=== PATIENT | female | born 1995 | race Caucasian/White ===

== ENCOUNTER 2018-05-08 21:49 | Emergency (ER) | payer SELFPAY ==
[2018-05-08] MEDS ORDERED: IPRATROPIUM/ALBUTEROL 3 ML VIAL NEB ONE ×2 (21:50→22:01)
--- NOTE | 2018-05-08 22:13 | ED.PDOC ---
History of Present Illness - General Chief Complaint: Asthma Stated Complaint: wheezing Time Seen by Provider: 05/08/18 22:10 Source: patient Exam Limitations: no limitations - History of Present Illness Comments: Alize Rodgers,22 y/o female came to ER with non productive cough,wheezing which had been gradually worsening the last 2 days.Had been diagnosed with asthma 2 1/2 years ago was prescribed Albuterol MDI,LABA and nebulizer by [facility] but never had any follow up for the last one year. Timing/Duration: yesterday, getting worse Cough Quality/Degree: dry cough Possible Cause: occasional episodes, allergen exposure Improving Factors: nothing Worsening Factors: nothing Associated Symptoms: wheezing Respiratory Risk Factors: exposure to allergen Allergies/Adverse Reactions: Allergies Azithromycin [From Zithromax Z-Tulio] Allergy (Verified 02/14/15 20:40) Rash face swells turns red and difficulty breathing Prednisone Adverse Reaction (Verified 05/08/18 21:57) Home Medications: Ambulatory Orders Albuterol Inhaler [Ventolin Hfa Inhaler] 108 mcg IN Q4HR PRN #1 inh 05/09/18 Albuterol Sulfate Nebs [Proventil Nebs] 2.5 mg INH Q6HRS PRN #60 vial 05/09/18 Cefuroxime Axetil [Ceftin] 500 mg PO Q12H 7 Days #14 tablet 05/09/18 Dexamethasone Tab [Decadron Tab] 4 mg PO DAILY 7 Days #7 tab 05/09/18 Review of Systems - Review of Systems Constitutional: States: no symptoms reported EENTM: States: no symptoms reported Respiratory: States: see HPI Cardiology: States: no symptoms reported Gastrointestinal/Abdominal: States: no symptoms reported Genitourinary: States: no symptoms reported All other Systems: Reviewed and Negative, No Change from Baseline Past Medical History (General) - Patient Medical History Hx Seizures: No Hx Stroke: No Hx Asthma: Yes Hx of COPD: No Hx Cardiac Disorders: No Hx Congestive Heart Failure: No Hx Pacemaker: No Hx Hypertension: No Hx Thyroid Disease: Yes Hx Diabetes: No Hx Renal Disease: No Hx MRSA: No Surgical History: no surgical history - Vaccination History Hx Tetanus, Diphtheria Vaccination: No Hx Influenza Vaccination: No Hx Pneumococcal Vaccination: No Immunizations Up to Date: No - Social History Hx Tobacco Use: Yes Hx Chewing Tobacco Use: No Hx Alcohol Use: No Hx Substance Use: No Hx Substance Use Treatment: No Hx Depression: No Hx Physical Abuse: No Hx Emotional Abuse: No - Female History Patient is a Female of Child Bearing Age (10 -59 yrs old): Yes Hx Last Menstrual Period: 03/13/18 Patient : No - Triage Comment ED Triage Comment: Has history of asthma, but does not have any medication left to treat it. Wheezing for past two days Family Medical History - Family History Mother Age (years): 32 Living Status: Still Living Hx Family Asthma: Yes - brother,son Hx Family Cancer: Yes - thyroid cancer Age of Onset (years of age): 28 Hx Family;Other: thyroid removed Brother Age (years): 13 Living Status: Still Living Hx Family;Other: seizures when younger Maternal Grandparents Name: Delaney Rodgers Age (years): 65 Living Status: Still Living Hx Family Hypertension: Yes - pt grandmother has high blood pressure Age of Onset (years of age): 49 Physical Exam - Physical Exam General Appearance: Alert, Anxious, No apparent distress Eye Exam: bilateral normal ENT Exam: normal ENT inspection, hearing grossly normal, TMs normal, pharynx normal Neck: supple, normal inspection, trachea midline Respiratory: chest non-tender, no respiratory distress, wheezing Cardiovascular/Chest: normal peripheral pulses, regular rate, rhythm, no murmur Gastrointestinal/Abdominal: non tender, soft Extremity: no pedal edema, no calf tenderness Neurologic: alert, oriented x 3 Skin Exam: normal color, warm/dry Progress - Progress Progress: 05/08/18 22:17 Vital Signs - 8 hr 05/08/18 05/08/18 21:54 21:59 Temperature 98.5 F Pulse Rate [ 116 H Right] Respiratory 22 22 Rate Blood Pressure 140/92 [Left Arm] O2 Sat by Pulse 97 Oximetry 05/08/18 22:22 Patient stated she is not allergic to IV steroids able to take it but to oral prednisone only - Results/Orders Results/Orders: 05/08/18 22:01 SVN/Updraft Therapy .PRN 05/08/18 22:18 IV Care:Saline Lock per Protoc QSHIFT 05/08/18 22:25 SVN/Updraft Therapy .ONCE SVN/Updraft Therapy .PRN 05/08/18 23:25 SVN/Updraft Therapy .ONCE SVN/Updraft Therapy .PRN 05/09/18 09[facility] Laboratory Results - last 24 hr 05/08/18 05/08/18 22:29 22:29 WBC 14.3 H RBC 5.10 Hgb 14.1 Hct 42.5 MCV 83.4 MCH 27.7 MCHC 33.3 RDW 14.1 Plt Count 227 MPV 9.4 Absolute Neuts (auto) 9.70 H Absolute Lymphs (auto) 2.70 Absolute Monos (auto) 0.60 Absolute Eos (auto) 1.20 H Absolute Basos (auto) 0.10 Neutrophils % 67.9 Lymphocytes % 18.6 L Monocytes % 4.5 Eosinophils % 8.1 H Basophils % 0.9 Serum HCG, Qual Negative - EKG/XRAY/CT XRAY: chest - no acute abnormalities noted Departure - Departure Clinical Impression: Asthma exacerbation Qualifiers: Asthma severity: unspecified severity Asthma persistence: unspecified Qualified Code(s): J45.901 - Unspecified asthma with (acute) exacerbation Time of Disposition: 00:24 Disposition: Discharge to Home or Self Care Condition: Good Departure Forms: ED Discharge - Pt. Copy, Patient Portal Self Enrollment Instructions: DI for Asthma -- Adult, Avoiding Asthma Triggers, Medicines for Asthma, Rescue vs Controller Inhalers Referrals: Marilou Barr NP [Primary Care Provider] - 1-2 Weeks Prescriptions: Albuterol Inhaler [Ventolin Hfa Inhaler] 108 mcg IN Q4HR PRN #1 inh PRN Reason: Wheezing Albuterol Sulfate Nebs [Proventil Nebs] 2.5 mg INH Q6HRS PRN #60 vial PRN Reason: Wheezing Cefuroxime Axetil [Ceftin] 500 mg PO Q12H 7 Days #14 tablet Dexamethasone Tab [Decadron Tab] 4 mg PO DAILY 7 Days #7 tab Home Medications: Ambulatory Orders Albuterol Inhaler [Ventolin Hfa Inhaler] 108 mcg IN Q4HR PRN #1 inh 05/09/18 Albuterol Sulfate Nebs [Proventil Nebs] 2.5 mg INH Q6HRS PRN #60 vial 05/09/18 Cefuroxime Axetil [Ceftin] 500 mg PO Q12H 7 Days #14 tablet 05/09/18 Dexamethasone Tab [Decadron Tab] 4 mg PO DAILY 7 Days #7 tab 05/09/18 Additional Instructions: Over the counter medications Zyrtec 10-one tablet daily;Delsym Liquid one teaspoon am/pm for cough;Need to follow up with [facility] [phone] , 14 May 2018 for recheck;Return to ER as needed
[2018-05-08] MEDS ORDERED: methylPREDNISolone SODIUM SUC 125 MG/2 ML VIAL IV ONE (22:23)
[2018-05-08] MEDS ORDERED: LEVALBUTEROL NEBS 1.25 MG/3 ML VIAL NEB ONE ×2 (22:25→23:25)
[2018-05-08] MEDS ORDERED: CETIRIZINE HCL 10 MG TAB PO ONE (22:59)
[2018-05-08] MEDS ORDERED: BENZONATATE PERLES 100 MG CAP PO ONE (23:00)
--- NOTE | 2018-05-08 23:04 | RAD ---
EXAM: Chest,1 View CLINICAL INDICATION: 22-year-old female with wheezing. TECHNIQUE: Single view, AP portable chest was obtained. COMPARISON: 05/07/2015. FINDINGS: Unremarkable cardiac and mediastinal silhouette. Heart size is normal. Lungs are clear without focal opacity, pneumothorax or pleural effusions. The visualized bones are within normal limits. IMPRESSION: No acute cardiopulmonary abnormalities. Electronically signed by: Yanely Nielson MD 05/08/2018 11:01 PM CDT
[2018-05-08] MEDS ORDERED: CEFUROXIME AXETIL TAB 250 MG TAB PO ONE (23:25)
[2018-05-08] MEDS ORDERED: HYDROcodone 7.5MG/APAP 325MG 1 EA TAB PO ONE (23:31)
[2018-05-09] MEDS: ALBUTEROL SULFATE NEBS (ED DISPENSE) 2.5 MG/3 ML VIAL NEB PRN ×2 (00:11→00:14)
[2018-05-09 00:47] VITALS: BP 125/86; TEMP 98.1; O2SAT 97
== END 2018-05-09 00:48 | disposition home or self-care (01) ==
LOC: ER 21:49
DX: J45.901 Unspecified asthma with (acute) exacerbation (principal); E07.9 Disorder of thyroid, unspecified; Z88.1 Allergy status to other antibiotic agents; Z88.8 Allergy status to other drugs, medicaments and biological substances; Z79.899 Other long term (current) drug therapy; Z87.891 Personal history of nicotine dependence
CPT/HCPCS: 36415; 71045; 84703; 85025; 94640; J2930; J7614; J7620

== ENCOUNTER 2018-06-07 15:57 | Emergency (ER) | payer SELFPAY ==
[2018-06-07] MEDS ORDERED: IPRATROPIUM/ALBUTEROL 3 ML VIAL NEB ONE ×3 (15:59→18:07)
[2018-06-07] MEDS ORDERED: predniSONE 20 MG TAB PO ONE (16:01)
[2018-06-07] MEDS ORDERED: diphenhydrAMINE HCL 25 MG CAP PO ONE (16:03)
[2018-06-07 16:10] VITALS: TEMP 98.5
--- NOTE | 2018-06-07 16:32 | RAD ---
EXAM DESCRIPTION: Chest,1 View CLINICAL HISTORY: 22 years Female, asthma exac COMPARISON: Chest radiograph 05/08/2018. TECHNIQUE: Single frontal view of the chest. IMPRESSION: Cardiac silhouette is normal in size. No consolidation present. No pleural effusion or pneumothorax. Osseous structures are intact. Electronically signed by: Ru Patrick MD 06/07/2018 4:29 PM CDT
[2018-06-07] MEDS ORDERED: POTASSIUM CHLORIDE ELIXIR 20 MEQ/15 ML UD PO ONE (17:46)
[2018-06-07] MEDS ORDERED: DOXYCYCLINE HYCLATE CAP 100 MG CAP PO ONE (18:07)
--- NOTE | 2018-06-07 18:24 | ED.PDOC ---
History of Present Illness - General Chief Complaint: Respiratory Problem Stated Complaint: asthma attack Time Seen by Provider: 06/07/18 16:00 Source: patient Exam Limitations: no limitations - History of Present Illness Initial Comments: The patient is a 22-year-old female presenting to emergency room secondary to significant asthma exacerbation. It has been going on for last 2 days. No productive cough. No fever. She has been taking her albuterol nebulizers but has no other medications for asthma. She has been breathing hard enough that she is now having muscle spasms in her back and chest pains with taking a deep breath. Timing/Duration: other - 48 hours Severity: severe Improving Factors: nothing Worsening Factors: nothing Associated Symptoms: chest pain, shortness of breath Allergies/Adverse Reactions: Allergies Azithromycin [From Zithromax Z-Tulio] Allergy (Verified 02/14/15 20:40) Rash face swells turns red and difficulty breathing Montelukast [From Singulair] Allergy (Verified 06/07/18 16:14) Home Medications: Ambulatory Orders Albuterol Inhaler [Ventolin Hfa Inhaler] 108 mcg IN Q4HR PRN #1 inh 05/09/18 Albuterol Sulfate Nebs [Proventil Nebs] 2.5 mg INH Q6HRS PRN #60 vial 05/09/18 Review of Systems - Review of Systems Constitutional: States: malaise EENTM: States: no symptoms reported Respiratory: States: cough, short of breath, wheezing Cardiology: States: chest pain Gastrointestinal/Abdominal: States: no symptoms reported Genitourinary: States: no symptoms reported Musculoskeletal: States: no symptoms reported Skin: States: no symptoms reported Neurological: States: no symptoms reported Endocrine: States: no symptoms reported All other Systems: No Change from Baseline Past Medical History (General) - Patient Medical History Hx Seizures: No Hx Stroke: No Hx Asthma: Yes Hx of COPD: No Hx Cardiac Disorders: No Hx Congestive Heart Failure: No Hx Pacemaker: No Hx Hypertension: No Hx Thyroid Disease: Yes Hx Diabetes: No Hx Renal Disease: No Hx Cancer: No Hx Hepatitis C: No Hx MRSA: No Surgical History: no surgical history - Vaccination History Hx Tetanus, Diphtheria Vaccination: Yes Hx Influenza Vaccination: No Hx Pneumococcal Vaccination: No - Social History Hx Tobacco Use: No Hx Chewing Tobacco Use: No Hx Alcohol Use: No Hx Substance Use: No Hx Substance Use Treatment: No Hx Depression: No Hx Physical Abuse: No Hx Emotional Abuse: No - Female History Patient is a Female of Child Bearing Age (10 -59 yrs old): Yes Hx Last Menstrual Period: 03/13/18 Patient : No Expected Date of Delivery:: 03/05/18 Hx Gestational Age: 16 Family Medical History - Family History Mother Age (years): 32 Living Status: Still Living Hx Family Asthma: Yes - brother,son Hx Family Cancer: Yes - thyroid cancer Age of Onset (years of age): 28 Hx Family;Other: thyroid removed Brother Age (years): 13 Living Status: Still Living Hx Family;Other: seizures when younger Maternal Grandparents Name: Delaney Rodgers Age (years): 65 Living Status: Still Living Hx Family Hypertension: Yes - pt grandmother has high blood pressure Age of Onset (years of age): 49 Physical Exam - Physical Exam General Appearance: Alert, Obvious distress Eye Exam: bilateral normal Ears, Nose, Throat: hearing grossly normal, normal ENT inspection Neck: full range of motion, supple Respiratory: respiratory distress, decreased breath sounds, accessory muscle use, rhonchi, wheezing Cardiovascular/Chest: normal peripheral pulses, no edema, tachycardia Peripheral Pulses: radial,right: 2+, radial,left: 2+ Gastrointestinal/Abdominal: non tender, soft Rectal Exam: deferred Back Exam: no CVA tenderness, no vertebral tenderness Extremity: non-tender, normal inspection, no pedal edema, normal capillary refill Neurologic: show worker II-XII nml as tested, alert, normal mood/affect, oriented x 3 Skin Exam: normal color Comments: Vital Signs - 24 hr 06/07/18 06/07/18 06/07/18 16:05 16:06 16:11 Temperature 98.5 F Pulse Rate 130 H Pulse Rate [ 120 H monitor] Respiratory 18 20 24 Rate Blood Pressure 133/103 [ra] O2 Sat by Pulse 92 L 98 Oximetry 06/07/18 06/07/18 06/07/18 16:15 17:00 17:30 Temperature Pulse Rate Pulse Rate [ 120 H 128 H 116 H monitor] Respiratory 22 22 20 Rate Blood Pressure 134/97 129/83 103/85 [ra] O2 Sat by Pulse 93 L 96 Oximetry 06/07/18 18:11 Temperature Pulse Rate Pulse Rate [ 115 H monitor] Respiratory 20 Rate Blood Pressure 128/88 [ra] O2 Sat by Pulse 96 Oximetry Progress - Progress Progress: 06/07/18 18:24 the patient's a 22-year-old female presenting with a significant asthma exacerbation. She has received 3 DuoNeb treatments and is breathing more easily. She has also received a dose of prednisone. She does have a leukocytosis which may be stress induced or may also be related to an infection. She is going to be placed on 5 days of doxycycline for that possibility. She will be continued on the prednisone and will be written for DuoNeb's in place of her albuterol nebulizers. the patient does have mild hypokalemia and was given a dose of potassium. This does need to be rechecked in a few weeks. ER warnings are given for any worsening. Follow up with primary care doctor in a few days. 06/07/18 18:26 - Results/Orders Results/Orders: chest x-ray shows no focal infiltrate. Laboratory Tests 06/07/18 06/07/18 06/07/18 17:00 17:00 17:02 WBC 15.1 H RBC 5.12 Hgb 14.1 Hct 42.7 MCV 83.3 MCH 27.5 MCHC 33.0 RDW 13.6 Plt Count 259 MPV 9.3 Absolute Neuts (auto) 12.80 H Absolute Lymphs (auto) 1.00 Absolute Monos (auto) 0.60 Absolute Eos (auto) 0.60 H Absolute Basos (auto) 0.10 Neutrophils % 85.0 H Lymphocytes % 6.5 L Monocytes % 3.8 Eosinophils % 4.0 Basophils % 0.7 Sodium 139 Potassium 3.3 L Chloride 107 Carbon Dioxide 20 L Anion Gap 15.3 BUN 6 L Creatinine 0.77 BUN/Creatinine Ratio 7.8 L Random Glucose 115 H Serum Osmolality 276.1 Calcium 9.4 Magnesium 1.9 Total Bilirubin 0.3 AST 21 ALT 9 L Alkaline Phosphatase 48 L Creatine Kinase 94 CK-MB (CK-2) 2.5 CK-MB (CK-2) % 2.66 Troponin I < 0.02 B-Natriuretic Peptide 8.8 Serum Total Protein 7.9 Albumin 4.7 Globulin 3.2 Albumin/Globulin Ratio 1.5 TSH 5.03 Urine Color Yellow Urine Appearance Clear Urine pH 5.0 Ur Specific [place] <= 1.005 Urine Protein Negative Urine Glucose (UA) Negative Urine Ketones Negative Urine Blood Negative Urine Nitrite Negative Urine Bilirubin Negative Urine Urobilinogen 0.2 Ur Leukocyte Esterase Negative Urine RBC 0 Urine WBC 0 Ur Epithelial Cells 0 Urine Bacteria 0 Departure - Departure Clinical Impression: Hypokalemia Asthma exacerbation Qualifiers: Asthma severity: severe Asthma persistence: persistent Qualified Code(s): J45.51 - Severe persistent asthma with (acute) exacerbation Disposition: Discharge to Home or Self Care Condition: Fair Departure Forms: ED Discharge - Pt. Copy, Patient Portal Self Enrollment Diet: regular diet Activity: increase activity as tolerated Referrals: Marilou Barr NP [Primary Care Provider] - 1-5 Days Home Medications: Ambulatory Orders Albuterol Inhaler [Ventolin Hfa Inhaler] 108 mcg IN Q4HR PRN #1 inh 05/09/18 Albuterol Sulfate Nebs [Proventil Nebs] 2.5 mg INH Q6HRS PRN #60 vial 05/09/18 Additional Instructions: the patient's a 22-year-old female presenting with a significant asthma exacerbation. She has received 3 DuoNeb treatments and is breathing more easily. She has also received a dose of prednisone. She does have a leukocytosis which may be stress induced or may also be related to an infection. She is going to be placed on 5 days of doxycycline for that possibility. She will be continued on the prednisone and will be written for DuoNeb's in place of her albuterol nebulizers. the patient does have mild hypokalemia and was given a dose of potassium. This does need to be rechecked in a few weeks. ER warnings are given for any worsening. Follow up with primary care doctor in a few days.
[2018-06-07 18:41] VITALS: BP 118/81; O2SAT 97
== END 2018-06-07 18:40 | disposition home or self-care (01) ==
LOC: ER 15:57
DX: J45.51 Severe persistent asthma with (acute) exacerbation (principal); E87.6 Hypokalemia; R00.0 Tachycardia, unspecified; E07.9 Disorder of thyroid, unspecified; Z79.899 Other long term (current) drug therapy; Z88.8 Allergy status to other drugs, medicaments and biological substances; Z88.1 Allergy status to other antibiotic agents
CPT/HCPCS: 71045; 80053; 81001; 82550; 82553; 83735; 83880; 84443; 84484; 85025; 93005; 94640; J7512; J7620; Q0163

== ENCOUNTER 2018-09-17 13:03 | Emergency (ER) | payer MEDICAID ==
[2018-09-17 14:45] VITALS: TEMP 98.7
--- NOTE | 2018-09-17 15:26 | ED.PDOC ---
History of Present Illness - General Chief Complaint: [employer]ES [employer]IVE [employer] Problem Stated Complaint: lower abdominal pain Time Seen by Provider: 09/17/18 13:06 Source: patient Exam Limitations: no limitations - History of Present Illness Initial Comments: the patient is a 23-year-old female presenting to the emergency room secondary to mild spotting over the last2 days. She thinks she is somewhat between 5 and 7 weeks gestational age. this is her second . She is also having some mild muscle cramping. she did have labile thyroid function in her last . Timing/Duration: other - 2 days Severity: mild Improving Factors: nothing Worsening Factors: nothing Associated Symptoms: denies symptoms Allergies/Adverse Reactions: Allergies Azithromycin [From Zithromax Z-Tulio] Allergy (Verified 02/14/15 20:40) Rash face swells turns red and difficulty breathing Montelukast [From Singulair] Allergy (Verified 06/07/18 16:14) Home Medications: Ambulatory Orders Levothyroxine Sodium 75 mcg PO DAILY #30 tab 09/17/18 Vit W/ Ferrous Fumara [] 1 tab PO DAILY 09/17/18 Review of Systems - Review of Systems Constitutional: States: no symptoms reported EENTM: States: no symptoms reported Respiratory: States: no symptoms reported Cardiology: States: no symptoms reported Gastrointestinal/Abdominal: States: abdominal pain Genitourinary: States: see HPI Musculoskeletal: States: no symptoms reported Skin: States: no symptoms reported Neurological: States: no symptoms reported Endocrine: States: no symptoms reported Hematologic/Lymphatic: States: no symptoms reported All other Systems: No Change from Baseline Past Medical History (General) - Patient Medical History Hx Seizures: No Hx Stroke: No Hx Asthma: Yes Hx of COPD: No Hx Cardiac Disorders: No Hx Congestive Heart Failure: No Hx Pacemaker: No Hx Hypertension: No Hx Thyroid Disease: Yes Hx Diabetes: No Hx Renal Disease: No Hx Cancer: No Hx Hepatitis C: No Hx MRSA: No Surgical History: no surgical history - Vaccination History Hx Tetanus, Diphtheria Vaccination: Yes Hx Influenza Vaccination: No Hx Pneumococcal Vaccination: No - Social History Hx Tobacco Use: No Hx Chewing Tobacco Use: No Hx Alcohol Use: No Hx Substance Use: No Hx Substance Use Treatment: No Hx Depression: No Hx Physical Abuse: No Hx Emotional Abuse: No - Female History Patient is a Female of Child Bearing Age (10 -59 yrs old): Yes Hx Last Menstrual Period: 07/28/18 Patient : Yes Expected Date of Delivery:: 05/16/18 Hx Gestational Age: 16 Family Medical History - Family History Mother Age (years): 32 Living Status: Still Living Hx Family Asthma: Yes - brother,son Hx Family Cancer: Yes - thyroid cancer Age of Onset (years of age): 28 Hx Family;Other: thyroid removed Brother Age (years): 13 Living Status: Still Living Hx Family;Other: seizures when younger Maternal Grandparents Name: Delaney Rodgers Age (years): 65 Living Status: Still Living Hx Family Hypertension: Yes - pt grandmother has high blood pressure Age of Onset (years of age): 49 Physical Exam - Physical Exam General Appearance: Alert, Comfortable, No apparent distress Eye Exam: bilateral normal Ears, Nose, Throat: hearing grossly normal, normal ENT inspection, normal pharynx Neck: full range of motion, supple Respiratory: lungs clear, normal breath sounds, no respiratory distress, no accessory muscle use Cardiovascular/Chest: normal peripheral pulses, regular rate, rhythm, no edema Peripheral Pulses: radial,right: 2+, radial,left: 2+ Gastrointestinal/Abdominal: non tender, soft Rectal Exam: deferred Back Exam: no CVA tenderness, no vertebral tenderness Extremity: non-tender, normal inspection, no pedal edema, normal capillary refill Neurologic: manager route II-XII nml as tested, alert, normal mood/affect, oriented x 3 Skin Exam: normal color Comments: Vital Signs - 24 hr 09/17/18 09/17/18 13:16 14:15 Temperature 99.2 F 98.7 F Pulse Rate [ 92 H 79 left brachial] Respiratory 20 20 Rate Blood Pressure 162/80 129/89 [left brachial] O2 Sat by Pulse 99 97 Oximetry Progress - Progress Progress: 09/17/18 15:28 the patient is a 23-year-old at approximately 5 weeks gestational age by ultrasound here today. Ultrasound confirms intrauterine . HCG is 4900. This does appear to be a threatened miscarriage. 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 Pelvic rest is recommended. She should continue her folic acid. Additionally she does have some significant hypothyroid developing. Her TSH has gone from 5 to 18 in the last 3 months[address] I'm going to place her on levothyroxine 75 g daily. This does need to be followed of course. ER warnings were given. - Results/Orders Results/Orders: Laboratory Tests 09/17/18 09/17/18 09/17/18 13:34 13:39 13:39 WBC 7.4 RBC 5.00 Hgb 13.9 Hct 41.5 MCV 82.9 MCH 27.9 MCHC 33.6 RDW 13.2 Plt Count 212 MPV 9.3 Absolute Neuts (auto) 4.70 Absolute Lymphs (auto) 1.80 Absolute Monos (auto) 0.40 Absolute Eos (auto) 0.30 Absolute Basos (auto) 0.10 Neutrophils % 64.3 Lymphocytes % 24.5 Monocytes % 5.5 Eosinophils % 4.7 Basophils % 1.0 Sodium 138 Potassium 3.7 Chloride 106 Carbon Dioxide 22 Anion Gap 13.7 BUN 11 Creatinine 0.68 BUN/Creatinine Ratio 16.2 Random Glucose 93 Serum Osmolality 274.8 L Calcium 9.5 Magnesium 2.1 Total Bilirubin 0.4 AST 17 ALT 10 Alkaline Phosphatase 36 L Serum Total Protein 7.7 Albumin 4.7 Globulin 3.0 Albumin/Globulin Ratio 1.6 TSH 18.42 H Free T4 Beta HCG, Quant 4916.0 H Urine Color Yellow Urine Appearance Clear Urine pH 6.0 Ur Specific [place] 1.025 Urine Protein Negative Urine Glucose (UA) Negative Urine Ketones Negative Urine Blood Negative Urine Nitrite Negative Urine Bilirubin Negative Urine Urobilinogen 0.2 Ur Leukocyte Esterase Trace H Urine RBC 0 Urine WBC 0-1 Ur Epithelial Cells 3-5 Urine Bacteria Rare Urine Mucus Small 09/17/18 13:39 WBC RBC Hgb Hct MCV MCH MCHC RDW Plt Count MPV Absolute Neuts (auto) Absolute Lymphs (auto) Absolute Monos (auto) Absolute Eos (auto) Absolute Basos (auto) Neutrophils % Lymphocytes % Monocytes % Eosinophils % Basophils % Sodium Potassium Chloride Carbon Dioxide Anion Gap BUN Creatinine BUN/Creatinine Ratio Random Glucose Serum Osmolality Calcium Magnesium Total Bilirubin AST ALT Alkaline Phosphatase Serum Total Protein Albumin Globulin Albumin/Globulin Ratio TSH Free T4 0.71 Beta HCG, Quant Urine Color Urine Appearance Urine pH Ur Specific [place] Urine Protein Urine Glucose (UA) Urine Ketones Urine Blood Urine Nitrite Urine Bilirubin Urine Urobilinogen Ur Leukocyte Esterase Urine RBC Urine WBC Ur Epithelial Cells Urine Bacteria Urine Mucus Departure - Departure Clinical Impression: Threatened miscarriage in early Disposition: Discharge to Home or Self Care Condition: Fair Departure Forms: ED Discharge - Pt. Copy, Patient Portal Self Enrollment Instructions: DI for Threatened Diet: regular diet Activity: other - pelvic rest Referrals: Izzy Reid NP [Primary Care Provider] - 1-2 Weeks Prescriptions: Levothyroxine Sodium 75 mcg PO DAILY #30 tab Home Medications: Ambulatory Orders Levothyroxine Sodium 75 mcg PO DAILY #30 tab 09/17/18 Vit W/ Ferrous Fumara [] 1 tab PO DAILY 09/17/18 Additional Instructions: the patient is a 23-year-old at approximately 5 weeks gestational age by ultrasound here today. Ultrasound confirms intrauterine . HCG is 4900. This does appear to be a threatened miscarriage. 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 Pelvic rest is recommended. She should continue her folic acid. Additionally she does have some significant hypothyroid developing. Her TSH has gone from 5 to 18 in the last 3 months[address] I'm going to place her on levothyroxine 75 g daily. This does need to be followed of course. ER warnings were given.
[2018-09-17 15:47] VITALS: BP 128/84; O2SAT 98
--- NOTE | 2018-09-17 15:47 | US ---
EXAM DESCRIPTION: OB ,Early (0-14wks): Ultrasound. CLINICAL HISTORY: 23 years Female IUP with vaginal spotting. Obstetrical history: 2, para 1. LMP 07/28/2018. EGA 7 weeks, 2 days. ANYA 05/04/2019. COMPARISON: None. TECHNIQUE: Transpelvic scanning through the urine filled bladder: Endovaginal scannin-dimensional and Doppler modes. FINDINGS: Uterus: 8.7 x 5.4 x 4.1 equals 102.2 mL. Gestational sac: Oval-shaped with internal echoes. Mean diameter 6 mm corresponds to 5 weeks and 1 day AFV: Subjectively normal. pole: Yes. Yolk sac: 2.3 mm. Subchorionic hemorrhage: None. heart tones: None. Cul-de-sac: Minimal fluid. Comments: EGA of 5 weeks and 1 day corresponds to ANYA 05/19/2019. Right ovary 3.3 x 1.8 x 1.7 cm. 5.3 mL. Normal waveform and color Doppler vascularity. No dominant cyst.. No adnexal mass or free fluid. Left ovary 2.7 x 1.9 x 1.9 cm. 5.1 mL. Normal waveform and color Doppler vascularity. No dominant cyst. No adnexal mass or free fluid. IMPRESSION: 1. Single intrauterine gestation with EGA by gestational sac size (6 mm) 5 weeks and 1 day corresponding to 05/19/2019. This is 2 weeks and 1 day younger than EGA by menstrual dates. Small pole but heart was not seen. Recommend follow-up ultrasound in 1 week with serial beta hCG measurements. 2. Bilateral ovaries normal size and appearance. No free fluid. Vascularity unremarkable. Electronically signed by: Diaz Chris MD 09/17/2018 3:45 PM CDT
== END 2018-09-17 15:35 | disposition home or self-care (01) ==
LOC: ER 13:03
DX: O20.0 Threatened abortion (principal); O99.281 Endocrine, nutritional and metabolic diseases complicating pregnancy, first trimester; E03.9 Hypothyroidism, unspecified; O99.511 Diseases of the respiratory system complicating pregnancy, first trimester; J45.909 Unspecified asthma, uncomplicated; Z3A.01 Less than 8 weeks gestation of pregnancy; Z79.899 Other long term (current) drug therapy; Z88.1 Allergy status to other antibiotic agents; Z88.8 Allergy status to other drugs, medicaments and biological substances

== ENCOUNTER → 2018-09-20 | Outpatient (CLI) | payer MEDICAID | LOC: YCFC.O 11:44 | PROVIDERS: ATTEND Nurse Practitioner Family | DX: Z32.01 Encounter for pregnancy test, result positive (principal) ==

== ENCOUNTER 2018-11-18 08:45 | Emergency (ER) | payer MEDICAID, OTHER ==
[2018-11-18] MEDS: ACETAMINOPHEN 325 MG TAB PO ONE (09:12)
--- NOTE | 2018-11-18 09:13 | ED.PDOC ---
History of Present Illness - General Chief Complaint: Respiratory Problem Stated Complaint: fever,right rib pain,cough Time Seen by Provider: 11/18/18 09:02 Source: patient - History of Present Illness Comments: Pt is a 23 yo female with PMH of asthma and 8 weeks . presents with 2 day h/o cough, subjective fever and sputum productive of yellow, blood tinged sputum. Today, has pain to right lateral ribs with cough. Denies abdominal pain, SOB, nausea, vomiting, pelvic pain, loss of fluids or vaginal bleeding. Has used albuterol neb at home with some relief. Allergies/Adverse Reactions: Allergies Azithromycin [From Zithromax Z-Tulio] Allergy (Verified 02/14/15 20:40) Rash face swells turns red and difficulty breathing Montelukast [From Singulair] Allergy (Verified 06/07/18 16:14) Home Medications: Ambulatory Orders Vit W/ Ferrous Fumara [] 1 tab PO DAILY 09/17/18 Acetaminophen [Mapap] 500 mg PO Q6HR PRN #15 cap 11/18/18 Levothyroxine Sodium 100 mcg PO DAILY 11/18/18 Prednisone 60 mg PO DAILY 5 Days #15 tab 11/18/18 Review of Systems - Review of Systems Constitutional: States: fever. Denies: weakness EENTM: States: nose congestion. Denies: blurred vision, ear pain, throat pain Respiratory: States: cough, wheezing. Denies: short of breath Cardiology: Denies: chest pain, palpitations Gastrointestinal/Abdominal: Denies: abdominal pain, constipation, diarrhea, nausea, vomiting Neurological: Denies: anxiety, depressed, headache, paresthesia All other Systems: Reviewed and Negative Past Medical History (General) - Patient Medical History Hx Seizures: No Hx Stroke: No Hx Asthma: Yes Hx of COPD: No Hx Cardiac Disorders: No Hx Congestive Heart Failure: No Hx Pacemaker: No Hx Hypertension: No Hx Thyroid Disease: Yes Hx Diabetes: No Hx Renal Disease: No Hx Cancer: No Hx Hepatitis C: No Hx MRSA: No Surgical History: tonsillectomy - Vaccination History Hx Tetanus, Diphtheria Vaccination: Yes Hx Influenza Vaccination: No Hx Pneumococcal Vaccination: No - Social History Hx Tobacco Use: No Hx Chewing Tobacco Use: No Hx Alcohol Use: No Hx Substance Use: No Hx Substance Use Treatment: No Hx Depression: No Hx Physical Abuse: No Hx Emotional Abuse: No - Female History Patient is a Female of Child Bearing Age (10 -59 yrs old): Yes Hx Last Menstrual Period: 07/28/18 Patient : Yes Expected Date of Delivery:: 07/03/19 Hx Gestational Age: 8 Family Medical History - Family History Mother Age (years): 32 Living Status: Still Living Hx Family Asthma: Yes - brother,son Hx Family Cancer: Yes - thyroid cancer Age of Onset (years of age): 30 Hx Family;Other: thyroid removed Brother Age (years): 13 Living Status: Still Living Hx Family;Other: seizures when younger Maternal Grandparents Name: Delaney Rodgers Age (years): 65 Living Status: Still Living Hx Family Hypertension: Yes - pt grandmother has high blood pressure Age of Onset (years of age): 49 Physical Exam - Physical Exam General Appearance: Alert, No apparent distress, Well Hydrated ENT Exam: TMs normal, pharyngeal erythema - mild Neck: full range of motion, supple Respiratory: chest non-tender, other - good air movement with mild expiratory wheezing Cardiovascular/Chest: normal peripheral pulses, regular rate, rhythm, no edema Gastrointestinal/Abdominal: non tender, soft, other - no RUQ tenderness. No guarding Extremity: normal range of motion Neurologic: alert, normal mood/affect, oriented x 3 Skin Exam: normal color, warm/dry Progress - Progress Progress: 11/18/18 09:29 Dat Reddy #[id number] 11/18/18 09:45 Pt had OB US on 09/17/18 showing early IUP with no cardiac activity at that time. 11/18/18 09:52 Wheeaes resolved post nebs. No respiratory distress and no hypoxia. I have d/w pt CXR is unremarkable and will treat for bronchitis and acute asthma exacerbation with continuing her albuterol neb at home and add prednisone. She will take Tylenol for pain and f/u with her OB Dr. Braun in 1-2 days for recheck. SRP given - Results/Orders Results/Orders: EXAM DESCRIPTION: Chest,1 View CLINICAL HISTORY: 23 years Female, cough, fever COMPARISON: Chest x-ray June 07, 2018 FINDINGS: No consolidation. No pneumothorax. No significant pleural effusion. Cardiomediastinal silhouette is unremarkable. Osseous structures are unremarkable. IMPRESSION: No acute findings. Electronically signed by: Leonardo Powell MD 11/18/2018 9:4 Departure - Departure Clinical Impression: First trimester Acute asthma exacerbation Qualifiers: Asthma severity: mild Asthma persistence: intermittent Qualified Code(s): J45.21 - Mild intermittent asthma with (acute) exacerbation Acute bronchitis Qualifiers: Bronchitis organism: unspecified organism Qualified Code(s): J20.9 - Acute bronchitis, unspecified Time of Disposition: 09:55 Disposition: Discharge to Home or Self Care Condition: Good Departure Forms: ED Discharge - Pt. Copy, Patient Portal Self Enrollment Instructions: DI for Asthma -- Adult Referrals: Emery Braun MD [Primary Care Provider] - 1-2 Days Prescriptions: Acetaminophen [Mapap] 500 mg PO Q6HR PRN #15 cap PRN Reason: pain Prednisone 60 mg PO DAILY 5 Days #15 tab Home Medications: Ambulatory Orders Vit W/ Ferrous Fumara [] 1 tab PO DAILY 09/17/18 Acetaminophen [Mapap] 500 mg PO Q6HR PRN #15 cap 11/18/18 Levothyroxine Sodium 100 mcg PO DAILY 11/18/18 Prednisone 60 mg PO DAILY 5 Days #15 tab 11/18/18
[2018-11-18] MEDS: IPRATROPIUM/ALBUTEROL 3 ML VIAL NEB ONE (09:25)
--- NOTE | 2018-11-18 09:45 | RAD ---
EXAM DESCRIPTION: Chest,1 View CLINICAL HISTORY: 23 years Female, cough, fever COMPARISON: Chest x-ray June 07, 2018 FINDINGS: No consolidation. No pneumothorax. No significant pleural effusion. Cardiomediastinal silhouette is unremarkable. Osseous structures are unremarkable. IMPRESSION: No acute findings. Electronically signed by: Leonardo Powell MD 11/18/2018 9:43 AM CDT
[2018-11-18 10:07] VITALS: BP 136/71; TEMP 97.3; O2SAT 99
== END 2018-11-18 10:07 | disposition home or self-care (01) ==
LOC: ER 08:45
DX: O99.511 Diseases of the respiratory system complicating pregnancy, first trimester (principal); J45.21 Mild intermittent asthma with (acute) exacerbation; J20.9 Acute bronchitis, unspecified; O99.281 Endocrine, nutritional and metabolic diseases complicating pregnancy, first trimester; E07.9 Disorder of thyroid, unspecified; Z3A.08 8 weeks gestation of pregnancy; Z79.899 Other long term (current) drug therapy; Z88.1 Allergy status to other antibiotic agents; Z88.8 Allergy status to other drugs, medicaments and biological substances
CPT/HCPCS: 71045; 94640; J7620

== ENCOUNTER 2018-11-24 09:59 | Emergency (ER) | payer OTHER ==
--- NOTE | 2018-11-24 12:28 | ED.PDOC ---
History of Present Illness - General Chief Complaint: [employer] Problem Stated Complaint: Vaginal spotting, abdominal cramping Time Seen by Provider: 11/24/18 10:02 Source: patient, RN notes reviewed, Vital Signs reviewed, RN/MD Exam Limitations: no limitations Additional Information: Pt is a 23 yo female at 9 weeks presenting with complaints of spotting over the past two days. She notes that she has also had cramping lower abdominal pain. She denies any fevers, chills, nausea, vomiting, dysuria, hematuria, or urinary frequency. She has had some discharge, which she denies being abnormal. She denies any recent falls, trauma to her abdomen, car accidents, cocaine, or smoking. She denies any recent sexual intercourse or vaginal penetration. - History of Present Illness Allergies/Adverse Reactions: Allergies Azithromycin [From Zithromax Z-Tulio] Allergy (Verified 11/24/18 10:23) Rash face swells turns red and difficulty breathing Montelukast [From Singulair] Allergy (Verified 11/24/18 10:23) Home Medications: Ambulatory Orders Vit W/ Ferrous Fumara [] 1 tab PO DAILY 09/17/18 Acetaminophen [Mapap] 500 mg PO Q6HR PRN #15 cap 11/18/18 RX: Levothyroxine Sodium 100 mcg PO DAILY 11/18/18 RX: Prednisone 60 mg PO DAILY 5 Days #15 tab 11/18/18 Cephalexin Monohydrate [Keflex] 500 mg PO BID 7 Days #14 cap 11/24/18 Review of Systems - Review of Systems Constitutional: Denies: chills, fever EENTM: Denies: no symptoms reported Respiratory: States: cough. Denies: short of breath Cardiology: Denies: chest pain Gastrointestinal/Abdominal: States: abdominal pain. Denies: nausea, vomiting Genitourinary: States: see HPI, discharge Musculoskeletal: Denies: back pain Skin: States: no symptoms reported Neurological: States: no symptoms reported Past Medical History (General) - Patient Medical History Hx Seizures: No Hx Stroke: No Hx Asthma: Yes Hx of COPD: No Hx Cardiac Disorders: No Hx Congestive Heart Failure: No Hx Pacemaker: No Hx Hypertension: No Hx Thyroid Disease: Yes Hx Diabetes: No Hx Renal Disease: No Hx Cancer: No Hx Hepatitis C: No Hx MRSA: No Surgical History: tonsillectomy - Vaccination History Hx Tetanus, Diphtheria Vaccination: Yes Hx Influenza Vaccination: Yes - 2017 Hx Pneumococcal Vaccination: No - Social History Hx Tobacco Use: No Hx Chewing Tobacco Use: No Hx Alcohol Use: No Hx Substance Use: No Hx Substance Use Treatment: No Hx Depression: No Hx Physical Abuse: No Hx Emotional Abuse: No - Female History Patient is a Female of Child Bearing Age (10 -59 yrs old): Yes Hx Last Menstrual Period: 09/24/18 Patient : Yes Expected Date of Delivery:: 07/03/19 Hx Gestational Age: 8 Family Medical History - Family History Brother Age (years): 13 Living Status: Still Living Hx Family;Other: seizures when younger Maternal Grandparents Name: Delaney Rodgers Age (years): 65 Living Status: Still Living Hx Family Hypertension: Yes - pt grandmother has high blood pressure Age of Onset (years of age): 49 Mother Age (years): 32 Living Status: Still Living Hx Family Asthma: Yes - brother,son Hx Family Cancer: Yes - thyroid cancer Age of Onset (years of age): 28 Hx Family;Other: thyroid removed Physical Exam - Physical Exam General Appearance: Alert, Comfortable Eyes, Ears, Nose, Throat Exam: PERRL/EOMI Neck: full range of motion, normal inspection Cardiovascular/Respiratory: regular rate, rhythm, no M/R/G, normal peripheral pulses, no JVD, normal breath sounds, no respiratory distress Gastrointestinal/Abdominal: normal bowel sounds, non tender, soft Pelvic Exam: speculum exam normal - Pelvic exam performed with RN. white discharge with closed cervical os. No blood or tissue. , discharge Progress - Progress Progress: DDx: Threatened miscarriage, completed miscarriage, missed , subchorionic hemorrhage, vaginitis, uti 11/24/18 15:14 Patient presented for evaluation of spotting while . She was overall well appearing and non-toxic. She had no focal abdominal tenderness. She had no signs of lacerations or injury on pelvic exam. She is A+ per patient therefore Rhogam was not administered. She was not anemic. HCG was appropriatley elevated. Bedside US was limited by image quality of ultrasound machine and underdistended bladder. I am unable to obtain formal ultrasound. Given few bacteria in urine and patient being , she will be given keflex. She will follow-up with Ob for repeat HCG. - Results/Orders Results/Orders: 11/24/18 10:15 Pelvic Exam Assist ONCE 11/24/18 10:34 Urine Culture Stat 11/24/18 11:00 GC CHLAMYDIA RNA,TMA Stat Laboratory Results - last 24 hr 11/24/18 11/24/18 11/24/18 10:34 10:34 10:34 WBC 6.8 RBC 4.49 Hgb 12.4 Hct 37.1 MCV 82.6 MCH 27.6 MCHC 33.4 RDW 12.7 Plt Count 209 MPV 9.6 Absolute Neuts (auto) 4.50 Absolute Lymphs (auto) 1.60 Absolute Monos (auto) 0.40 Absolute Eos (auto) 0.30 Absolute Basos (auto) 0.10 Neutrophils % 65.9 Lymphocytes % 23.6 Monocytes % 5.3 Eosinophils % 4.0 Basophils % 1.2 Sodium 136 Potassium 3.6 Chloride 104 Carbon Dioxide 22 Anion Gap 13.6 BUN 8 Creatinine 0.58 L BUN/Creatinine Ratio 13.8 Random Glucose 86 Serum Osmolality 269.6 L Calcium 9.0 Total Bilirubin 0.4 AST 16 ALT 9 L Alkaline Phosphatase 33 L Serum Total Protein 7.0 Albumin 3.8 Globulin 3.2 Albumin/Globulin Ratio 1.2 Beta HCG, Quant 384599.0 H Urine Color Yellow Urine Appearance Sl cloudy Urine pH 7.5 Ur Specific [place] 1.020 Urine Protein Negative Urine Glucose (UA) Negative Urine Ketones Negative Urine Blood Negative Urine Nitrite Negative Urine Bilirubin Negative Urine Urobilinogen 0.2 Ur Leukocyte Esterase Trace H Urine RBC 0 Urine WBC 3-5 H Ur Epithelial Cells 10-20 Urine Bacteria Rare Departure - Departure Clinical Impression: Threatened miscarriage Time of Disposition: 12:25 Disposition: Discharge to Home or Self Care Condition: Good Departure Forms: ED Discharge - Pt. Copy, Patient Portal Self Enrollment Instructions: DI for Threatened Diet: resume usual diet Referrals: Emery Braun MD [Primary Care Provider] - 1-2 Weeks Prescriptions: Cephalexin Monohydrate [Keflex] 500 mg PO BID 7 Days #14 cap Home Medications: Ambulatory Orders Vit W/ Ferrous Fumara [] 1 tab PO DAILY 09/17/18 Acetaminophen [Mapap] 500 mg PO Q6HR PRN #15 cap 11/18/18 RX: Levothyroxine Sodium 100 mcg PO DAILY 11/18/18 RX: Prednisone 60 mg PO DAILY 5 Days #15 tab 11/18/18 Cephalexin Monohydrate [Keflex] 500 mg PO BID 7 Days #14 cap 11/24/18 Comments: Rash[facility] #[id number]
[2018-11-24 12:39] VITALS: BP 119/74; TEMP 98; O2SAT 99
== END 2018-11-24 12:37 | disposition home or self-care (01) ==
LOC: ER 09:59
DX: O20.0 Threatened abortion (principal); O99.511 Diseases of the respiratory system complicating pregnancy, first trimester; J45.909 Unspecified asthma, uncomplicated; O99.281 Endocrine, nutritional and metabolic diseases complicating pregnancy, first trimester; E07.9 Disorder of thyroid, unspecified; Z3A.09 9 weeks gestation of pregnancy; Z88.1 Allergy status to other antibiotic agents; Z88.8 Allergy status to other drugs, medicaments and biological substances

== ENCOUNTER → 2019-08-21 | Outpatient (CLI) | payer OTHER ==
--- NOTE | 2019-08-21 11:20 | RAD ---
EXAM DESCRIPTION: Chest,2 Views CLINICAL HISTORY: EXACERBATION OF ASTHMA COMPARISON: November 18, 2018 TECHNIQUE: PA/lateral FINDINGS: Right lung is clear without infiltrate or effusion or atelectasis in lung volumes are normal. On the left, minimally coarsened stranding and increased markings in the midlung field peripherally in the left lung base in the retrocardiac region suggests a tiny amount of inflammatory change or atelectasis or mucous plugging. Lobar or segmental consolidation is not apparent. No significant pleural effusions. The upper lung field on the left is normal IMPRESSION: Normal stranding left midlung field and left lung base consistent with atelectasis or mucus plugging or minimal inflammation without dense consolidation. No evidence of hyperexpansion. Electronically signed by: Bright Sanchez MD 08/21/2019 11:18 AM CDT
== END ==
LOC: LAB.O 10:24
PROVIDERS: ATTEND Family Medicine
DX: J45.901 Unspecified asthma with (acute) exacerbation (principal); R91.8 Other nonspecific abnormal finding of lung field

== ENCOUNTER → 2019-09-18 | Outpatient (CLI) | payer OTHER ==
--- NOTE | 2019-09-18 13:05 | RAD ---
EXAM DESCRIPTION: Chest,2 Views x-ray CLINICAL HISTORY: 24 years Female, COUGH COMPARISON: 08/21/2019 IMPRESSION: Heart size and pulmonary vascularity are within normal limits. Subtle bibasilar hazy airspace opacities, concerning for an atypical infectious/inflammatory process, including Covid 19. No pleural effusion or pneumothorax. No acute osseous abnormality. Electronically signed by: Nemesio Salgado MD 09/18/2019 1:03 PM CDT
== END ==
LOC: YCFC.O 11:23
PROVIDERS: ATTEND Family Medicine
DX: Z03.818 Encounter for observation for suspected exposure to other biological agents ruled out (principal); R91.8 Other nonspecific abnormal finding of lung field; R50.9 Fever, unspecified; R05 Cough

== ENCOUNTER 2020-02-19 20:51 | Observation (INO) | payer OTHER, SELFPAY ==
[2020-02-19] MEDS ORDERED: methylPREDNISolone SODIUM SUC 125 MG/2 ML VIAL IV ONE (21:05)
[2020-02-19] MEDS ORDERED: IPRATROPIUM/ALBUTEROL 3 ML VIAL NEB ONE (21:06)
[2020-02-19] MEDS ORDERED: MAGNESIUM SULFATE PREMIX 2GM 2 GM in PREMIX BAG 1 BAG IVPB ONE (21:07)
--- NOTE | 2020-02-19 21:09 | ED.PDOC ---
History of Present Illness - General Chief Complaint: Asthma Stated Complaint: congestion, body aches, headache Time Seen by Provider: 02/19/20 21:02 Source: patient, RN notes reviewed, Vital Signs reviewed, old records Exam Limitations: no limitations - History of Present Illness Initial Comments: 24 yo F with hx of asthma comes in with one week of worsening shortness of breat h. States she has been using her rescue inhalers, but hasn't been getting better so came in for evaluation. Also on Proair. Is compliant with medications. Previous hospitalization for asthma, never intubated. Denies fever, sore throat or sick contacts. Timing/Duration: 1 week Activities at Onset: activity Improving Factors: medication, rest Worsening Factors: cold therapy, movement Allergies/Adverse Reactions: Allergies Azithromycin [From Zithromax Z-Tulio] Allergy (Verified 11/24/18 10:23) Rash face swells turns red and difficulty breathing Montelukast [From Singulair] Allergy (Verified 11/24/18 10:23) Home Medications: Ambulatory Orders Levothyroxine Sodium 137 mcg PO DAILY 11/18/18 Albuterol Sulfate Nebs [Proventil Nebs] 2.5 mg INH PRN 02/19/20 Review of Systems - Review of Systems Constitutional: Denies: chills, fever EENTM: Denies: throat pain Respiratory: States: short of breath, wheezing. Denies: cough Cardiology: States: chest pain. Denies: edema, palpitations Gastrointestinal/Abdominal: Denies: abdominal pain, nausea, vomiting Genitourinary: Denies: dysuria Musculoskeletal: Denies: back pain, muscle pain, neck pain Skin: Denies: rash Neurological: Denies: headache, seizure, weakness Endocrine: Denies: unexplained weight gain, unexplained weight loss Hematologic/Lymphatic: Denies: easy bleeding, easy bruising Past Medical History (General) - Patient Medical History Hx Seizures: No Hx Stroke: No Hx Dementia: No Hx Asthma: Yes Hx of COPD: No Hx Cardiac Disorders: No Hx Congestive Heart Failure: No Hx Pacemaker: No Hx Hypertension: No Hx Thyroid Disease: Yes Hx Diabetes: No Hx Gastroesophageal Reflux: No Hx Renal Disease: No Hx Cancer: No Hx of HIV: No Hx Hepatitis C: No Hx MRSA: No Surgical History: noncontributory - Vaccination History Hx Tetanus, Diphtheria Vaccination: No Hx Influenza Vaccination: No Hx Pneumococcal Vaccination: No - Social History Hx Tobacco Use: No Hx Chewing Tobacco Use: No Hx Alcohol Use: No Hx Substance Use: No Hx Substance Use Treatment: No Hx Depression: No Hx Physical Abuse: No Hx Emotional Abuse: No - Female History Hx Last Menstrual Period: 09/24/18 Patient : Yes Expected Date of Delivery:: 07/03/19 Hx Gestational Age: 8 Family Medical History - Family History Mother Age (years): 32 Living Status: Still Living Hx Family Asthma: Yes - brother,son Hx Family Cancer: Yes - thyroid cancer Age of Onset (years of age): 28 Hx Family;Other: thyroid removed Brother Age (years): 13 Living Status: Still Living Hx Family;Other: seizures when younger Maternal Grandparents Name: Delaney Rodgers Age (years): 65 Living Status: Still Living Hx Family Hypertension: Yes - pt grandmother has high blood pressure Age of Onset (years of age): 49 Physical Exam - Physical Exam General Appearance: Alert, Comfortable, No apparent distress, Well Developed, Well Groomed, Well Hydrated, Well Nourished Eyes, Ears, Nose, Throat Exam: normal ENT inspection Neck: non-tender, full range of motion, supple, normal inspection Respiratory: chest non-tender, wheezing, expiration, inspiration, other - tachypnea Cardiovascular/Chest: normal peripheral pulses, regular rate, rhythm, no edema, no gallop, no JVD, no murmur Peripheral Pulses: radial,right: 2+, radial,left: 2+ Gastrointestinal/Abdominal: normal bowel sounds, non tender, soft, no organomegaly, no pulsatile mass Rectal Exam: deferred Extremity: normal range of motion, normal inspection, no calf tenderness Neurologic: no motor/sensory deficits, alert, normal mood/affect, oriented x 3 Skin Exam: normal color, warm/dry Progress - Progress Progress: 02/19/20 21:24 patient given 1 hour long albuterol neb with ipatropium, also given 3 mg magnesium IV, solumedrol 125 mg. Will get CXR and EKG due to chest pain. continues to have exp/ins wheezing. will give another duoneb. also give mucinex for congestion/mucous production. . after another hour of observation continues to be tachypnea and wheezing. The data reviewed when caring for this patient included: nurse notes, prior records, etc. The history and assessments from nurses notes were reviewed and considered, and the patient's home medication list was also reviewed and considered. My assessment and the results of testing completed here in the ED were discussed with the patient/family. All questions were answered, and they express understanding of my assessment and the plan. Alyson Gomez DO #[id number] - Results/Orders Results/Orders: 02/19/20 21:07 Magnesium Sulfate Premix 2Gm 2 gm Premix Bag 1 bag IVPB ONCE 02/19/20 21:09 RESPIRATORY PANEL 2 Stat 02/19/20 21:15 EKG STAT Laboratory Results WBC 9.9 K/mm3 (4.8-10.8) 02/19/20 21: RBC 4.79 M/mm3 (4.20-5.40) 02/19/20 21: Hgb 12.7 gm/dL (12.0-16.0) 02/19/20 21: Hct 38.5 % (36.0-47.0) 02/19/20 21: MCV 80.4 fl (81.0-99.0) L 02/19/20 21: MCH 26.6 pg (27.0-31.0) L 02/19/20 21: MCHC 33.1 g/dL (33.0-37.0) 02/19/20 21: RDW 13.6 % (11.5-14.5) 02/19/20 21:31 Plt Count 287 K/mm3 (130-400) 02/19/20 21: MPV 9.0 fl (7.40-10.4) 02/19/20 21: Absolute Neuts (auto) 5.50 K/uL (1.8-6.8) 02/19/20 21: Absolute Lymphs (auto) 2.80 K/uL (1.0-3.4) 02/19/20 21: Absolute Monos (auto) 0.50 K/uL (0.2-0.8) 02/19/20 21: Absolute Eos (auto) 1.00 K/uL (0.0-0.4) H 02/19/20 21: Absolute Basos (auto) 0.10 K/uL (0.0-0.1) 02/19/20 21:31 Neutrophils % 55.3 % (42.0-78.0) 02/19/20 21:31 Lymphocytes % 28.3 % (20.0-50.0) 02/19/20 21: Monocytes % 5.1 % (2.0-9.0) 02/19/20 21: Eosinophils % 10.0 % (1.0-5.0) H 02/19/20 21: Basophils % 1.3 % (0.0-2.0) 02/19/20 21:31 Sodium 142 mmol/L (135-145) 02/19/20 21:31 Potassium 3.6 mmol/L (3.6-5.0) 02/19/20 21:31 Chloride 107 mmol/L (101-111) 02/19/20 21:31 Carbon Dioxide 25 mmol/L (21-31) 02/19/20 21:31 Anion Gap 13.6 (12-18) 02/19/20 21:31 BUN 9 mg/dL (7-18) 02/19/20 21:31 Creatinine 0.85 mg/dL (0.6-1.3) 02/19/20 21:31 BUN/Creatinine Ratio 10.6 (10-20) 02/19/20 21:31 Random Glucose 90 mg/dL (70-105) 02/19/20 21:31 Serum Osmolality 281.3 mOsm/L (275-295) 02/19/20 21:31 Calcium 9.5 mg/dL (8.4-10.2) 02/19/20 21:31 Total Bilirubin 0.3 mg/dL (0.2-1.0) 02/19/20 21:31 AST 20 IU/L (10-42) 02/19/20 21:31 ALT 17 IU/L (10-60) 02/19/20 21:31 Alkaline Phosphatase 50 IU/L (42-121) 02/19/20 21:31 Troponin I < 0.02 ng/mL (0.01-0.05) 02/19/20 21:31 B-Natriuretic Peptide < 15.0 pg/ml (0-100) 02/19/20 21:31 Serum Total Protein 7.6 gm/dL (6.4-8.2) 02/19/20 21:31 Albumin 4.4 g/dl (3.2-5.5) 02/19/20 21:31 Globulin 3.2 gm/dL (2.3-3.5) 02/19/20 21:31 Albumin/Globulin Ratio 1.4 (1.1-1.9) 02/19/20 21:31 - EKG/XRAY/CT EKG: Sinus - hr 80 Comments: normal intervals, no evidence of acute ischemia. Departure - Departure Clinical Impression: Rhinovirus Asthma exacerbation Qualifiers: Asthma severity: moderate Asthma persistence: persistent Qualified Code(s): J45.41 - Moderate persistent asthma with (acute) exacerbation Time of Disposition: 23:00 Disposition: Admit Patient Departure Forms: ED Discharge - Pt. Copy, Patient Portal Self Enrollment Instructions: DI for Asthma -- Adult Diet: resume usual diet Activity: increase activity as tolerated Referrals: Carter Hernandez MD [Primary Care Provider] - 1-5 Days Home Medications: Ambulatory Orders Levothyroxine Sodium 137 mcg PO DAILY 11/18/18 Albuterol Sulfate Nebs [Proventil Nebs] 2.5 mg INH PRN 02/19/20 Decision To Admit - Decistion To Admit Decision to Admit Reason: Medical Nature Decision to Admit Date: 02/19/20 Decision to Admit Time: 22:44
[2020-02-19] MEDS ORDERED: SODIUM CHL 0.9% 50ML VIAL 3 ML, ALBUTEROL SULFATE NEBS 15 MG NEB ONE ×2 (21:23)
--- NOTE | 2020-02-19 21:29 | RAD ---
EXAM DESCRIPTION: Chest,1 View CLINICAL HISTORY:24 years Female, short of breath Comparison: Chest radiograph dated 09/18/2019 FINDINGS: No focal lung consolidation. No pleural effusion. No pneumothorax. Cardiomediastinal silhouette is within normal limits. No acute osseous abnormality. IMPRESSION: No acute cardiopulmonary disease. Electronically signed by: Rios Marsh DO 02/19/2020 9:27 PM IT [employer]NAGER
[2020-02-19] MEDS ORDERED: guaiFENesin ER TAB 600 MG TAB PO ONE (21:57)
[2020-02-19] MEDS ORDERED: SODIUM CHLORIDE 0.9% 1000ML 1,000 ML IVS ONE (21:57)
[2020-02-19] MEDS ORDERED: IPRATROPIUM BROMIDE NEBS 0.5 MG/2.5 ML VIAL NEB ONE (22:17)
[2020-02-19] MEDS ORDERED: MAGNESIUM SULFATE INJ 1 GM in SODIUM CHLORIDE 0.9% 100ML 100 ML IVPB ONE (22:18)
[2020-02-20] MEDS ORDERED: ONDANSETRON INJ 4 MG/2 ML VIAL IV PRN (01:17)
[2020-02-20] MEDS ORDERED: SODIUM CHLORIDE 0.9% (FLUSH) 10 ML SYG IV PRN (01:17)
[2020-02-20] MEDS ORDERED: IV SET AND CAP CHANGE INJ INJ SCH (01:30)
[2020-02-20] MEDS: IPRATROPIUM/ALBUTEROL 3 ML VIAL INH PRN ×2 (01:31→07:52)
[2020-02-20] MEDS: methylPREDNISolone SODIUM SUC 125 MG/2 ML VIAL IV SCH ×2 (05:48→12:18)
[2020-02-20] MEDS ORDERED: LEVOTHYROXINE SODIUM 0.075 MG TAB PO SCH (06:30)
[2020-02-20] MEDS: IPRATROPIUM BROMIDE NEBS 0.5 MG/2.5 ML VIAL NEB SCH ×2 (08:33→12:00)
[2020-02-20 08:36] VITALS: O2SAT 99
[2020-02-20] MEDS ORDERED: SODIUM CHLORIDE 0.9% (FLUSH) 10 ML SYG IV SCH (09:00)
[2020-02-20] MEDS ORDERED: guaiFENesin ER TAB 600 MG TAB PO SCH (09:00)
[2020-02-20] MEDS ORDERED: FERROUS SULFATE 325 MG TAB PO SCH (09:00)
[2020-02-20 12:53] VITALS: BP 125/74; TEMP 97.6
--- NOTE | 2020-03-04 15:38 | SSS ---
SUPERVISING PHYSICIAN: Dat Guillen M.D. CHIEF COMPLAINT: Asthma. HISTORY OF PRESENT ILLNESS: This is a 24 year-old female patient who has had approximately 1 week of worsening shortness of breath. She had been using her rescue inhaler but has not been getting any better, so she came in for evaluation. She also takes ProAir. She has had previous hospitalizations for asthma but she has never been intubated. Her vital signs were stable when she came in but was having a very difficult time breathing. She was tachypneic with accessory muscle use. She received several breathing treatments as well as some Solu-Medrol and magnesium. After multiple breathing treatments, her breathing was still quite labored and it was thought that she would benefit from an overnight stay with aggressive pulmonary hygiene, including steroids and breathing treatments. PAST MEDICAL HISTORY: 1. Hypothyroidism. 2. Chronic persistent asthma. 3. Chronic low back pain. PAST SURGICAL HISTORY: 1. Tonsillectomy. CURRENT MEDICATIONS: 1. Synthroid. 2. ProAir. 3. Albuterol. ALLERGIES: AZITHROMYCIN AND SINGULAIR. FAMILY HISTORY: Noncontributory. SOCIAL HISTORY: She lives in [place]. She quit smoking many years ago. There is no history of ETOH or illicit drug use. REVIEW OF SYSTEMS: Negative except as per History of Present Illness. PHYSICAL EXAMINATION: VITAL SIGNS: Temperature 97.6, heart rate 84, blood pressure 125/74, respiratory rate 16, O2 saturation 99% on room air at rest. GENERAL: This is a 24 year-old female patient lying in her hospital bed. She is in no acute distress. HEENT: Normocephalic, atraumatic. Pupils are equal and reactive. Oropharynx is clear. NECK: Supple without mass. RESPIRATORY: Essentially clear to auscultation bilaterally, although she has decent breath sounds throughout. No accessory muscle use at this time. CARDIAC: Regular rate and rhythm. GASTROINTESTINAL: Abdomen is soft, nondistended, nontender. Bowel sounds are positive. EXTREMITIES: No cyanosis, clubbing or edema. NEUROLOGIC: Awake, alert and oriented times three. Cranial nerves II-XII are grossly intact as tested. LABORATORY: WBCs have remained stable at 8.6 with hemoglobin 11.2, hematocrit 35.8. Electrolytes are basically within normal limits. It is to be noted that she did have a positive serum HCG, although the patient had a miscarriage about a month ago and her beta HCG was only 13.8. The patient is being followed by Dr. Braun. RADIOLOGY: Chest x-ray shows no acute cardiopulmonary process. DISCHARGE PLAN: The patient will be discharged home in stable condition. She is to resume her previous diet, increase her activity as tolerated. She is to followup with Dr. Hernandez in the next 1 to 2 weeks. She can also follow with Dr. Braun in regard to her barely elevated HCG level. In addition to her routine home medications, she will have a prednisone taper. She is to return to the hospital or followup with Dr. Hernandez for any problems or complications. DISCHARGE MEDICATIONS: 1. Levothyroxine. 2. Albuterol. 3. Ferrous sulfate. 4. Prednisone. 5. Guaifenesin. #[id number] [facility]
== END 2020-02-20 12:57 | disposition home or self-care (01) ==
LOC: ER 20:51 → MS 23:12
PROVIDERS: ADMIT Nurse Practitioner Acute Care; ATTEND Nurse Practitioner Acute Care
DX: J45.41 Moderate persistent asthma with (acute) exacerbation (principal); B34.8 Other viral infections of unspecified site; E03.9 Hypothyroidism, unspecified; G89.29 Other chronic pain; M54.5 Low back pain; I49.3 Ventricular premature depolarization; Z79.51 Long term (current) use of inhaled steroids; Z79.890 Hormone replacement therapy; Z79.899 Other long term (current) drug therapy; Z88.1 Allergy status to other antibiotic agents; Z88.8 Allergy status to other drugs, medicaments and biological substances; Z87.891 Personal history of nicotine dependence
CPT/HCPCS: 96366; 96365; 96375; 96376; J7611; J7644 ×2; J2930 ×3; J7030; J3475 ×2; J7620 ×3; A4216; J7050; 80053 ×2; 36415 ×4; 84702; 85025 ×2; 84703; 83735; 84484; 83880; 71045; 94640 ×5; 94644; 94760; 82803; 36600; 82805; 99285; 93005; G0378; 87581; 87486; 87633; 87635

== ENCOUNTER → 2020-02-24 | Outpatient (CLI) | payer OTHER | LOC: YCFC.O 16:29 | PROVIDERS: ATTEND Nurse Practitioner Family | DX: Z32.00 Encounter for pregnancy test, result unknown (principal) ==